=== PATIENT | female | born 1985 | race Caucasian/White ===

== ENCOUNTER 2024-04-16 06:03 | Day surgery (SDC) | payer OTHER, SELFPAY ==
[2024-04-16] VITALS (11 sets, daily range): BP systolic 105–138; BP diastolic 64–80; BMI 22.3
[2024-04-16] MEDS: NORMOSOL-R/PLASMALYTE-A 1000 IV (07:10)
[2024-04-16] MEDS: ROXICODONE ORAL SOLUTION 5 MG PO (10:30)
== END 2024-04-16 10:30 | disposition home or self-care (01) ==
LOC: SDS 06:03
PROVIDERS: ATTENDING PHYSICIAN Otolaryngology; FAMILY PHYSICIAN Family Medicine
DX: J35.01 Chronic tonsillitis (principal)
CPT/HCPCS: 42826; 88304